=== PATIENT | male | born 1970 | race Hispanic/Latino ===

== ENCOUNTER 2017-12-12 13:25 | Emergency (ER) | payer OTHER, SELFPAY ==
[2017-12-12 13:28] VITALS: BP 122/71; PULSE 67; RESP 14; TEMP 36.6; O2SAT 97
--- NOTE | 2017-12-12 14:02 | PC.NURSE ---
via language line, updated patient w/ plan of care. Discussed pain control and confirmed no meds / allergies.
[2017-12-12] MEDS: TET,DIPH,PERTUSS(ACELL),VAC/PF 0.5 ML SYRINGE IM (14:07)
[2017-12-12] MEDS: ACETAMINOPHEN 325 MG TABLET 650 MG PO (14:08)
--- NOTE | 2017-12-12 14:45 | ED.WOUNDLAC ---
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 History is obtained through using the translation line. Patient states he was at work when what he described was a ?drill ?kicked back on what he was working on an hit him in his upper lip. Patient has not tried anything for prior to arrival. No loose teeth are missing teeth. Does not know when his last tetanus shot was. Related Data Home Medications Medication Instructions Recorded Confirmed No Known Home Medications 12/12/17 12/12/17 Allergies Allergy/AdvReac Type Severity Reaction Status Date / Time No Known Drug Allergies Allergy Unverified 12/12/17 12:48 Review of Systems Constitutional Denies fever(s) ENT Comments: Cut to his upper lip, upper teeth pain Cardiovascular Denies dyspnea Respiratory Denies dyspnea Integumentary/Breasts Comments: Cut to his upper lip [facility] Medical History Healthy adult (Acute) Surgical History No pertinent past surgical history (Acute) Social History Smoking Status: Never smoker alcohol intake: never Exam Initial Vital Signs Initial Vital Signs: Vital Signs Temperature 97.9 F 12/12/17 13:28 Pulse Rate 67 12/12/17 13:28 Respiratory Rate 14 12/12/17 13:28 Blood Pressure 122/71 12/12/17 13:28 Pulse Oximetry 97 12/12/17 13:28 Const General: healthy appearing and comfortable Orientation: alert and awake HENSC Teeth and gingiva: dentition normal and gingiva normal Resp Effort & Inspection: normal respiratory effort Skin Other: Patient with a 3 cm laceration to his upper lip just left of midline that does involve the vermilion border. No active bleeding. Neuro General: alert and awake Extrem General: normal to inspection and capillary refill normal Procedures Laceration Repair Laceration 1: Site: lip Side (If applicable): left Size (cm): 3 Description: linear Depth: simple, single layer Local Anesthetic: lidocaine 1% Amount of anesthesia used (mL): 3 Pre-repair: wound explored, irrigated extensively and deep structures intact Skin layer closed with: other (Chromic) Size (cm): 5-0 Number of sutures: 8 Technique: simple, interrupted Course Orders Ordered: Discontinued Medications Acetaminophen (Tylenol) 650 mg PO NOW ONE Stop: 12/12/17 14:03 Last Admin: 12/12/17 14:08 Dose: 650 mg Diphtheria/Tetanus/Acell Pertussis (Adacel) 0.5 ml IM .ONCE ONE Stop: 12/12/17 14:03 Last Admin: 12/12/17 14:07 Dose: 0.5 ml Vital Signs - 8 hr 12/12/17 13:28 Temperature 97.9 F Pulse Rate 67 Respiratory Rate 14 Blood Pressure 122/71 Pulse Oximetry 97 MDM - Wound/Laceration MDM Narrative Medical decision making narrative: Patient's upper lip wound was repaired as above. His tetanus shot was updated. The wound did involve the vermilion border however the closure did look appropriate afterwards. I discussed with the patient the translation line that he would have a scar after this procedure despite my interventions. We did discuss care instructions. We did discuss return precautions. The patient expressed understanding and agreement plan. Discharge Plan Departure Patient Disposition: Home Clinical Impression: Laceration of lip Discharge Date/Time: 12/12/17 15:56 Interventions: ED Discharge Assessment Last Done: 12/12/17 15:55 Instructions: DI for Laceration Repair Activity Restrictions/Additional Instructions: Los puntos que se colocaron en el labio interno deber?an disolverse por s? solos. Habr? kailey cicatriz a pesar de mi intervenci?n hoy. Puede cubrir el enid con kailey curita para mantenerla limpia. Puedes ducharte bessy siempre. Puedes mantenerlo limpio con agua y jab?n. Regrese al departamento de emergencia para cualquier s?ntoma nuevo o que empeore Prescriptions: No Action No Known Home Medications RF: 0
== END 2017-12-12 15:56 | disposition home or self-care (01) ==
PROVIDERS: Emergency Provider Emergency Medicine
DX: S01.511A Laceration without foreign body of lip, initial encounter (principal); W20.8XXA Other cause of strike by thrown, projected or falling object, initial encounter; Y99.0 Civilian activity done for income or pay
CPT/HCPCS: 12032; 12052; 90471; 99283; 90715